=== PATIENT | female | born 1945 | race Caucasian/White ===

== ENCOUNTER → 2023-11-22 11:32 | Outpatient (REF) | payer MEDICARE, OTHER, SELFPAY | LOC: HWWDC 11:32 | PROVIDERS: ATTENDING PHYSICIAN Obstetrics & Gynecology; FAMILY PHYSICIAN Family Medicine | DX: Z12.31 Encounter for screening mammogram for malignant neoplasm of breast (principal) | CPT/HCPCS: 77063; 77067 ==

== ENCOUNTER → 2024-08-19 12:48 | Outpatient (REF) | payer MEDICARE, OTHER, SELFPAY | LOC: HWRAD 12:48 | PROVIDERS: ATTENDING PHYSICIAN Obstetrics & Gynecology; FAMILY PHYSICIAN Family Medicine | DX: N85.5 Inversion of uterus (principal) | CPT/HCPCS: 76830; 76856 ==

== ENCOUNTER 2024-11-01 06:46 | Day surgery (SDC) | payer MEDICARE, OTHER, SELFPAY ==
[2024-10-14 13:08] VITALS: BMI 23.2
[2024-11-01] VITALS (10 sets, daily range): BP systolic 112–151; BP diastolic 60–90; BMI 23.2
[2024-11-01] MEDS: NORMOSOL-R/PLASMALYTE-A 1000 IV (10:20)
== END 2024-11-01 15:20 | disposition home or self-care (01) ==
LOC: SDS 06:46
PROVIDERS: ATTENDING PHYSICIAN Obstetrics & Gynecology
DX: N84.0 Polyp of corpus uteri (principal); N81.6 Rectocele; R93.89 Abnormal findings on diagnostic imaging of other specified body structures
CPT/HCPCS: 58558; 88305; 86900; 86901

== ENCOUNTER → 2024-11-25 16:26 | Outpatient (REF) | payer MEDICARE, OTHER, SELFPAY | LOC: HWWDC 16:26 | PROVIDERS: ATTENDING PHYSICIAN Obstetrics & Gynecology; FAMILY PHYSICIAN Family Medicine | DX: Z12.31 Encounter for screening mammogram for malignant neoplasm of breast (principal) | CPT/HCPCS: 77063; 77067 ==